=== PATIENT | female | born 1950 | race Caucasian/White ===

== ENCOUNTER 2016-07-26 12:32 | Emergency (ER) | payer OTHER ==
[2016-07-26] MEDS ORDERED: DIPHENHYDRAMINE 50 MG/ML VIAL ONE (19:26)
[2016-07-26] MEDS ORDERED: SODIUM CHLORIDE 0.9% 1,000 ML ONE (19:26)
[2016-07-26] MEDS ORDERED: KETOROLAC 30 MG/ML VIAL ONE (19:26)
[2016-07-26] MEDS ORDERED: METOCLOPRAMIDE 10 MG/2 ML VIAL ONE (19:26)
== END 2016-07-26 21:00 | disposition home or self-care (01) ==
LOC: ER 12:32
DX: T80.89XA Other complications following infusion, transfusion and therapeutic injection, initial encounter (principal); R51 Headache; G70.00 Myasthenia gravis without (acute) exacerbation; I11.9 Hypertensive heart disease without heart failure; I25.10 Atherosclerotic heart disease of native coronary artery without angina pectoris; J44.9 Chronic obstructive pulmonary disease, unspecified; E11.9 Type 2 diabetes mellitus without complications; E78.00 Pure hypercholesterolemia, unspecified; Z95.5 Presence of coronary angioplasty implant and graft; Z79.899 Other long term (current) drug therapy; Z79.84 Long term (current) use of oral hypoglycemic drugs; Z79.82 Long term (current) use of aspirin
CPT/HCPCS: 96361; 96374; 96375; 99283; J1885